=== PATIENT | female | born 1965 | race Caucasian/White ===

== ENCOUNTER 2025-10-21 09:54 | Outpatient (OUT) | payer OTHER, SELFPAY ==
--- OUTSIDE RECORDS SUMMARY | 2025-10-21 10:00 | XMS_ITS | Clinical Summary ---
Author Organization [employer] [facility] tem Address [id number] [address] [place] [address] Care Team Providers Care Battery Container Tester Aluminum Name Role Phone Mara Marcela Beard PA-C Primary Care Provider [phone] Allergies Active AllergyReactionsCriticalityNoted DateComments Sulfamethoxazole-PeevkqyiekepGjoresqfmdawsc17/03/2020 Medications MedicationSigDispense QuantityRefillsLast FilledStart DateEnd DateStatus levothyroxine (SYNTHROID, LEVOTHROID) 100 MCG tablet Take 1 tablet by mouth daily.12/22/2019Active omeprazole (PriLOSEC) 20 mg capsule Take 20 mg by mouth daily.Active fluticasone propionate (FLONASE) 50 mcg/actuation nasal spray Administer 2 sprays into each nostril daily.Active Family History Medical HistoryRelationNameCommentsHeart attackBrotherage 58HypertensionFather AnginaMotherDiabetesMotherlate onsetHeart diseaseMotherHyperlipidemiaMother HypertensionMotherKidney diseaseMotherrenal failureScoliosisSister 1No Known ProblemsSister 2oldestRelationNameStatusCommentsBrotherage 58DeceasedFatherAlive MotherDeceasedSister 1AliveSister 2oldestAlive Social History Tobacco UseTypesPacks/DayYears UsedDateSmoking Tobacco: Every DayCigarettes0.3 31.8Started: 1994Smokeless Tobacco: NeverAlcohol UseStandard Drinks/Week CommentsNot Currently0 (1 standard drink = 0.6 oz pure alcohol)rarelyAUDIT-C AnswerDate RecordedFrequency of Alcohol EksufqwmyecWfryi62/03/2020Average Number of DrinksNot on file01/05/2020Frequency of Binge DrinkingNot on file01/05/2020 ChildcareAnswerDate WtdbxiqqSmphyrurcLymdsyq03/12/2019EmploymentAnswerDate JzmxasaxSznnnrzbhwFvwobzf79/12/2019Purpose - LifeAnswerDate RecordedPurpose and direction in qoquQxlroxu14/11/2021CommentsNoSex and Gender Information ValueDate RecordedSex Assigned at BirthNot on fileLegal PssQsnlqg69/06/2015 11:55 AM EDTGender IdentityNot on fileSexual OrientationNot on file Last Filed Vital Signs Vital SignReadingTime TakenCommentsBlood Edmduyod397/6603 2:30 PM EDT Tprof595601/12/2020 2:30 PM IIKUjabcniuxua32.4 ??C (97.5 ??F)01/12/2020 2:30 PM EDTRespiratory Xwlj996101/12/2020 2:30 PM EDTOxygen Airviqhxaw84%01/12/2020 2:30 PM EDTInhaled Oxygen Concentration--Uazadk14.6 kg (173 lb 4.5 oz)01/12/2020 10:00 AM KQOIzipif832 cm (5' 3.39 )01/12/2020 10:00 AM EDTBody Mass Index30.32 01/12/2020 10:00 AM EDT Plan of Treatment Health MaintenanceDue DateLast DoneCommentsDepression Postrigbf65/03/1978Tobacco Tioqaxtpg24/03/1978Adult BMI Fcpdgfbhm14/03/1984DTaP,Tdap and Td Vaccines (1 - Tdap)1985Pap Smear1987Zoster (Shingles) Vaccine (1 of 2)01/05/2016 Influenza Hkqeegq06 Medical Devices ImplantedTypeAreaManufacturerDevice IdentifierShelf Expiration DateModel / Serial / LotTube Arian [employer] Pc 1.14 Id Rpl [id number] - [id number] - [id number] Implanted:Qty: 1 on 01/12/2020 [facility] ImplantLeft: EarGRACE [id number] / [id number] / [id number] T-Tube Pc Adry 1.27 Id [facility] [id number] - [id number] - [id number] Implanted:Qty: 1 on 01/12/2020 by [facility] ImplantRight: EarGRACE [id number] / [id number] / [id number] Insurance Care Teams Team MemberRelationshipSpecialtyStart DateEnd Date Marcela Terry PA-C [address] [place] [address] PCP - GeneralPhysician Assistant01/05/20
--- OUTSIDE RECORDS SUMMARY | 2025-10-21 10:00 | XMS_ITS | Clinical Summary ---
Author Organization [facility] Address [address] [place] [address] Care Team Providers Care Canvass Manager Name Role Phone Wendy Crump MD Primary Care Provider [phone] Allergies Active AllergyReactionsCriticalityNoted DateCommentsAzithromycinAnxietyLow 06/20/20239429Kwwjelhzkwww04/17/2023 Other Reaction(s): hallucination MdxwsuntemOhqvxdqHxb12/17/2023Sulfamethoxazole-Qwtdqzofehgk00/17/2023 Other Reaction(s): spacey Medications MedicationSigDispense QuantityRefillsLast FilledStart DateEnd DateStatus levothyroxine (Synthroid, Levoxyl) 50 MCG tablet Indications:Subclinical hypothyroidismTAKE ONE TABLET BY MOUTH DAILY IN THE MORNING ON AN EMPTY STOMACH 90 tablet 5Active nystatin (Mycostatin) 704468 UNIT/GM powder Indications:Candidal intertrigoApply topically in the morning and before bedtime. Under breast. 60 g 5Active buPROPion XL (Wellbutrin XL) 150 MG 24 hr tablet Indications:Personal history of nicotine dependenceTake 1 tablet (150 mg) by mouth Daily Do not crush, chew, or split. 90 tablet 501/6Active citalopram (CeleXA) 20 MG tablet Indications:Mixed anxiety and depressive disorderTake 1 tablet (20 mg) by mouth Daily 90 tablet 5Active atorvastatin (Lipitor) 20 MG tablet Indications:Mixed hyperlipidemiaTake 1 tablet (20 mg) by mouth Daily 90 tablet 5Active omeprazole OTC (PriLOSEC OTC) 20 MG EC tablet Indications:Gastroesophageal reflux disease without esophagitisTake 1 tablet (20 mg) by mouth in the morning. Take before meals. 90 tablet tive amoxicillin-clavulanate (Augmentin) 875-125 MG tablet Indications:Acute right otitis mediaTake 1 tablet (875 mg) by mouth in the morning and 1 tablet (875 mg) before bedtime. Do all this for 7 days. 14 tablet Expired Active Problems ProblemNoted DateDiagnosed DateSeasonal allergic sddumhtu96/23/2023 Gastroesophageal reflux hyahkrr3703/26/2023 Assessment & Plan (08/10/2025 2:12 PM EDT): -stable with omeprazole Mixed anxiety and depressive wwkjbhza62/23/2023 Assessment & Plan (08/10/2025 2:12 PM EDT): -Mood is stable on current medications. Reviewed importance of healthy diet and exercise, stress management, and social support. Mixed insigcaqandyhn27/23/2023 Assessment & Plan (08/10/2025 2:12 PM EDT): Orders: Lipid panel; Future atorvastatin (Lipitor) 20 MG tablet; Take 1 tablet (20 mg) by mouth Daily -on statin Primary lyexdzsz43/23/2023Subclinical goprjxcmjstasw84/23/2023 Resolved Problems ProblemNoted DateDiagnosed DateResolved DateAbnormality of red blood cells / Encounters DateTypeDepartmentCare LhcbDiuegluvfcw67/01/2025 2:30 PM ESTOffice Visit [facility] [address] [place] [address] Helga Cunningham NP Acute right otitis media (Primary Dx)10/04/2025amboo flowsheet [facility] [address] [place] [address] Helga Cunningham NP 10/04/20259589Rzykli27/22/2025Telephone [facility] [address] [place] [address] Wendy Crump MD 08/11/2025Results Follow-Up [place] [address] [place] [address] Rosemarie Garcia NP Lipid panel, Comprehensive metabolic panel, TSH W/REFLEX TO FT4, Additional followed-up results: 12:30 PM EDTOffice Visit [place] [address] [facility] [place] [address] Rosemarie Garcia NP Encounter for wellness examination (Primary Dx); Mixed hyperlipidemia; Gastroesophageal reflux disease without esophagitis; Mixed anxiety and depressive disorder; Acquired hypothyroidism; Fatigue, unspecified type; Screening mammogram for breast cancer; Colon cancer screening declined; Personal history of nicotine dependence; Herpes zoster without complication; Candidal intertrigo; Skin tag08/10/2025bstract [place] [address] [place] [address] Wendy Crump MD 08/10/2025amboo flowsheet [place] [address] [facility] [place] [address] Rosemarie Garcia NP 08/10/20255685Klrmzt01/26/2025 4:30 PM EDTOffice Visit [place] [address] [place] [address] Rosemarie Garcia NP Candidal intertrigo (Primary Dx); Hkzixhvssg48/26/2025ambkulwinder flowsheet [place] [address] [place] [address] Rosemarie Garcia NP 07/30/2025Travelfrom Last 3 Months Immunizations ImmunizationAdministration DatesNext DueInfluenza, injectable, quadrivalent, preservative free08/04/2019Zoster, Jitrfkezign65/03/2023,10/11/2022 Family History Medical HistoryRelationNameCommentsHeart attackBrotherSuicide AttemptsBrother HypertensionFatherAnginaMotherHypertensionMotherKidney failureMotherDepression NieceMental illnessPaternal GrandfatherSuicide AttemptsPaternal Grandfather Suicide AttemptsSisterMedical isuesSonRelationNameStatusCommentsBrotherDeceased Irngeganc8HcjjsiIhmttwwrImnnqgZvfvingaQesczRxemswkq YsmvxjgnayqQivvzcv0Gdk Social History Tobacco UseTypesPacks/DayYears UsedDateSmoking Tobacco: Every DayCigarettesLast attempted to quit: 09/29/2023Smokeless Tobacco: Never Tobacco Cessation:Ready to Q uit: Not Asked; Counseling Given: Not Answered Comments:5 or less cigs/day Alcohol UseStandard Drinks/WeekCommentsNever0 (1 standard drink = 0.6 oz pure alcohol)Caffine: 0AUDIT-CAnswerDate RecordedQ1: How often do you have a drink containing alcohol?Monthly or less06/21/2023Q2: How many drinks containing alcohol do you have on a typical day when you are drinking?1 or Q3: How often do you have six or more drinks on one occasion?Never06/21/2023HQ-2 AnswerDate RecordedPatient Health Questionnaire-2 Kgvok101 CommentsUnknownSex and Gender InformationValueDate RecordedSex Assigned at Not on fileLegal PnrDfyfha93/15/2023 7:12 PM EDTGender IdentityNot on fileSexual OrientationNot on file Last Filed Vital Signs Vital SignReadingTime TakenCommentsBlood Zzswuitg669/80112/05/2024 2:26 PM EST Dteaa08080/01/2025 2:26 PM CTUAqhrylipxce34.4 ??C (97.5 ??F)10/04/2025 2:26 PM ESTRespiratory Rate--Oxygen Skqcizehej27%10/04/2025 2:26 PM ESTInhaled Oxygen Concentration--Zrbojh08.7 kg (189 lb)10/04/2025 2:26 PM CQHJfegdv091 cm (5' 3 ) 09/10/2024 10:05 AM ESTBody Mass Index33.4809/10/2024 10:05 AM EST Plan of Treatment Health MaintenanceDue DateLast DoneCommentsCT Vmlaqifubkvf1966Colonoscopy 1966Colorectal Cancer Arsujzxfe1966FIT-DNA1966FIT1966 FOBT1966Mkgfjprccqgfd1966Pneumococcal Vaccine: Pediatrics (0 to 5 Years) and At-Risk Patients (6 to 64 Years) (1 of 2 - PCV)1985Pap Smear 1987Cervical Cancer Yphwfqlsk98/03/1996HPV/Trjudo2901/05/1996Mammogram 2006COVID-19 Vaccine ( season)/01/2021, 02/13/2021 Influenza OjhohsxBfqrbskuv83/15/2025, 09/28/2024, 08/04/2019 Procedures Procedure NamePriorityDate/TimeAssociated DiagnosisCommentsVITAMIN O27Drakwve 08/10/2025 1:08 PM EDT Fatigue, unspecified type VITAMIN D 25 HYDROXY FXMXQKbmdvja76/07/2025 1:08 PM EDT Fatigue, unspecified type IRON + TRANSFERRIN + QPCQIefoaox69/07/2025 1:08 PM EDT Fatigue, unspecified type CBC (INCLUDES DIFF/PLT)Pdvbmuc3708/10/2025 1:08 PM EDT Fatigue, unspecified type TSH W/REFLEX TO BQ6Krcgoze88/07/2025 1:08 PM EDT Acquired hypothyroidism COMPREHENSIVE METABOLIC SZSWCHbtodni96/07/2025 1:08 PM EDT Encounter for wellness examination LIPID KZZOINhjaxvy59/07/2025 1:08 PM EDT Encounter for wellness examination Mixed hyperlipidemia from Last 3 Months Results * Iron + transferrin + TIBC (08/10/2025 1:08 PM EDT)ComponentValueRef RangeTest MethodAnalysis TimePerformed AtPathologist SignatureIRON, LVBVW3513 - 160 mcg/dLQUESTIRON BINDING GLUCTTWL286606 - 450 mcg/dL (calc)QUEST% FRSIRQZWNU12 16 - 45 % (calc)PQSZHWGUUDQRO9538 - 232 ng/mLQUESTSpecimen (Source)Anatomical Location / LateralityCollection Method / VolumeCollection TimeReceived Time BloodVenous blood specimen / Yyeojds7708/10/2025 1:08 PM EDT1 1:09 PM EDT Narrative Resulting Agency Comment Performing Organization Information ?Site ID: QPT ?Name: [facility] ?Address: [address] [place] [address], [address] [place] [address] ?Director: Cheng Harvey MD Authorizing ProviderResult TypeResult StatusSaraFabiola Hospitalrojelioriddle hospital NPLAB BLOOD ORDERABLES Final ResultPerforming OrganizationAddressty/State/[facility] CodePhone Number QUEST * TSH W/REFLEX TO FT4 (08/10/2025 1:08 PM EDT)ComponentValueRef RangeTest Method Analysis TimePerformed AtPathologist SignatureTSH W/REFLEX TO FT42.740.40 - 4.50 mIU/LQUESTSpecimen (Source)Anatomical Location / LateralityCollection Method / VolumeCollection TimeReceived Time08/10/2025 1:08 PM EDT1 1:09 PM EDT Narrative Resulting Agency Comment Performing Organization Information ?Site ID: QPT ?Name: [facility] ?Address: [address] [place] [address], [address] [place] [address] ?Director: Cheng Harvey MD Authorizing ProviderResult TypeResult StatusSarah Kampfer NPLAB BLOOD ORDERABLES Final ResultPerforming OrganizationAddressty/State/ZIP CodePhone Number QUEST * Vitamin D 25 hydroxy (08/10/2025 1:08 PM EDT)ComponentValueRef RangeTest MethodAnalysis TimePerformed AtPathologist SignatureVITAMIN D,25-OH,TOTAL,IA31 30 - 100 ng/mLQUESTComment: Vitamin D Status ? 25-OH Vitamin D: Deficiency: <20 ng/mL Insufficiency: ? 20 - 29 ng/mL Optimal: > or = 30 ng/mL For 25-OH Vitamin D testing on patients on D2-supplementation and patients for whom quantitation of D2 and D3 fractions is required, the QuestAssureD(TM) 25-OH VIT D, (D2,D3), LC/MS/MS is recommended: order code 71093 (patients >2yrs). See Note 1 Note 1 For additional information, please refer to http://education.Paper Hunter/faq/IEG780 (This link is being provided for informational/ educational purposes only.) Specimen (Source)Anatomical Location / LateralityCollection Method / Volume Collection TimeReceived TimeBloodVenous blood specimen / Ztohpzt5208/10/2025 1:08 PM EDT1 1:09 PM EDT Narrative Resulting Agency Comment Performing Organization Information ?Site ID: QPT ?Name: [facility] ?Address: [address] [place] [address], [address] [place] [phone] ?Director: Cheng Harvey MD Authorizing ProviderResult TypeResult StatusSaroseann Garcia [facility] BLOOD ORDERABLES Final ResultPerforming OrganizationAddressCity/State/ZIP CodePhone Number [facility]ST * (ABNORMAL) CBC and differential (08/10/2025 1:08 PM EDT)ComponentValueRef RangeTest MethodAnalysis TimePerformed AtPathologist SignatureWHITE BLOOD CELL COUNT6.23.8 - 10.8 Thousand/uLQUESTRED BLOOD CELL COUNT5.24(H)3.80 - 5.10 Million/wMRZSKERBBCBMUCGV45.511.7 - 15.5 g/fASFGWPKFASTDTFBP30.8(H)35.0 - 45.0 %NKSOZFQM94.380.0 - 100.0 jZXEWOHHVU75.627.0 - 33.0 gjDGAWBMYXJ06.132.0 - 36.0 g/dLQUESTComment: For adults, a slight decrease in the calculated MCHC value (in the range of 30 to 32 g/dL) is most likely not clinically significant; however, it should be interpreted with caution in correlation with other red cell parameters and the patient's clinical condition. RDW13.611.0 - 15.0 %QUESTPLATELET HUDYJ018976 - 400 Thousand/uLQUESTMPV9.77.5 - 12.5 fLQUESTABSOLUTE NEUTROPHILS3,3911,500 - 7,800 cells/uLQUESTABSOLUTE LYMPHOCYTES1,707203 - 3,900 cells/uLQUESTABSOLUTE PPTBBKDBH922797 - 950 cells/uL QUESTABSOLUTE ECDPSROTZEJ74442 - 500 cells/uLQUESTABSOLUTE MQZRNNOHP931 - 200 cells/kWPRXCNQTMDTIARHQG29.7%NWCTWDYMPIPPKXRN66.4%SYJMDSXZEZDOAN66.2%QUEST EOSINOPHILS2.1%QUESTBASOPHILS0.6%QUESTSpecimen (Source)Anatomical Location / LateralityCollection Method / VolumeCollection TimeReceived TimeBloodVenous blood specimen / Mcrzufh7808/10/2025 1:08 PM EDT1 1:09 PM EDT Narrative Resulting Agency Comment Performing Organization Information ?Site ID: QPT ?Name: [facility] ?Address: [address] [place] [address] ?Director: Cheng Harvey MD Authorizing ProviderResult TypeResult StatusSara Jose NPLAB BLOOD ORDERABLES Final ResultPerforming [facility] HealthcareAddNew [facility] HospitalPhone Number QUEST * Vitamin B12 (08/10/2025 1:08 PM EDT)ComponentValueRef RangeTest MethodAnalysis TimePerformed AtPathologist SignatureVITAMIN [id number] - 1,100 pg/mLQUEST Specimen (Source)Anatomical Location / LateralityCollection Method / Volume Collection TimeReceived TimeBloodVenous blood specimen / Upbrgsx7108/10/2025 1:08 PM EDT1 1:09 PM EDT Narrative Resulting Agency Comment Performing Organization Information ?Site ID: QPT ?Name: [facility] ?Address: [address] [place] [address] ?Director: Cheng Harvey MD Authorizing ProviderResult TypeResult StatusSarah Kampfer NPLAB BLOOD ORDERABLES Final ResultPerforming OrganizationAddressCity/State/ZIP CodePhone Number [facility]ST * (ABNORMAL) Lipid panel (08/10/2025 1:08 PM EDT)ComponentValueRef RangeTest MethodAnalysis TimePerformed AtPathologist SignatureCHOLESTEROL, PXCPT679<200 mg/dLQUESTHDL OGKTSJQYLRH98> OR = 50 mg/dDEQAVAWKHGUECSIPMWW307(H)<150 mg/dL QUESTComment: If a non-fasting specimen was collected, consider repeat triglyceride testing on a fasting specimen if clinically indicated. Airam et al. J. of Clin. Lipidol. 2015;9:129-169. LDL PVDZBQKQRZH33jd/dL (calc)QUESTComment: Reference range: <100 Desirable range <100 mg/dL for primary prevention; <70 mg/dL for patients with CHD or diabetic patients with > or = 2 CHD risk factors. LDL-C is now calculated using the Randall calculation, which is a validated novel method providing better accuracy than the Friedewald equation in the estimation of LDL-C. Jayesh SS et al. SUNITHA. 2013;310(19): 8556-9373 (http://education.Clout.Discera/faq/XHT642) CHOL/HDLC RATIO3.4<5.0 (calc)QUESTNON HDL LJQQBQNVVUA436<130 mg/dL (calc)QUEST Comment: For patients with diabetes plus 1 major ASCVD risk factor, treating to a non-HDL-C goal of <100 mg/dL (LDL-C of <70 mg/dL) is considered a therapeutic option. Specimen (Source)Anatomical Location / LateralityCollection Method / Volume Collection TimeReceived TimeBloodVenous blood specimen / Vdcbwqm6008/10/2025 1:08 PM EDT1 1:09 PM EDT Narrative Resulting Agency Comment Performing Organization Information ?Site ID: QPT ?Name: [facility] ?Address: [address] [place] [address], [address] [place] [phone] ?Director: Cheng Harvey MD Authorizing ProviderResult TypeResult StatusSaroseann BECK BLOOD ORDERABLES Final ResultPerforming OrganizationAddressCity/State/ZIP CodePhone Number QUEST * Comprehensive metabolic panel (08/10/2025 1:08 PM EDT)ComponentValueRef Range Test MethodAnalysis TimePerformed AtPathologist SahzbxwrfRawgtaf8976 - 99 mg/dLQUESTComment: ? Fasting reference interval ODN125 - 25 mg/dLQUESTCreatinine0.970.50 - 1.03 mg/wHPMHIBMKCY62> OR = 60 mL/min/1.37h8LDREHPOE/CREATININE RATIOSEE NOTE: (calc)QUESTComment: ?? Not Reported: BUN and Creatinine are within ?? reference range. ? Ammowg838259 - 146 mmol/LQUESTPotassium, Bld3.93.5 - 5.3 mmol/IUDVLJUmqneekx811 98 - 110 mmol/LQUESTCarbon Nvalzit1089 - 32 mmol/LQUESTCalcium9.48.6 - 10.4 mg/dLQUESTPROTEIN, TOTAL6.96.1 - 8.1 g/dLQUESTALBUMIN4.33.6 - 5.1 g/dLQUEST GLOBULIN2.61.9 - 3.7 g/dL (calc)QUESTALBUMIN/GLOBULIN RATIO1.71.0 - 2.5 (calc) QUESTBILIRUBIN, TOTAL0.40.2 - 1.2 mg/dLQUESTALKALINE WKRRKZPCSTB3504 - 153 U/L AEKWHJPP4480 - 35 U/CKTPLRLHA024 - 29 U/LQUESTSpecimen (Source)Anatomical Location / LateralityCollection Method / VolumeCollection TimeReceived TimeBlood Venous blood specimen / Seadxxl0608/10/2025 1:08 PM EDT1 1:09 PM EDT Narrative Resulting Agency Comment Performing Organization Information ?Site ID: QPT ?Name: [facility] ?Address: [address] [place] [address], [address] [place] [phone] ?Director: Cheng Harvey MD Authorizing ProviderResult TypeResult StatusSaroseann BECK BLOOD ORDERABLES Final ResultPerforming OrganizationAddressCity/State/ZIP CodePhone Number QUEST from Last 3 Months Insurance * Guarantor: Aparna Michelle TypeRelation to PatientDate of PhoneBilling AddressPersonal/OkbxquZfid1965 [phone] [address] Care Teams Team MemberRelationshipSpecialtyStart DateEnd Date Wendy Crump MD [address] [place] [address] PCP - GeneralFatxly Medicine03/12/23
--- NOTE | 2025-10-21 10:05 | US_ITS ---
The [address] [address] Patient Name: BRIANDA TRUJILLO MRN: [id number] date: 1965 Sex: F Assigned Patient Location: [place] Current Patient Location: [place] Accession/Order Number: [id number] Exam Date: 10/21/2025 10:06 Report Date: 10/21/2025 10:43 At the request of: NON-STAFF PHYSICIAN MD Procedure: US thyroid THYROID ULTRASOUND CLINICAL DATA: Thyromegaly COMPARISON: None The thyroid lobes are within normal limits for size. The right measures 3.4 x 1.3 x 1.3 cm. The left lobe measures 2.2 x 1.2 x 1.1 cm. The isthmus measures 3 mm. There is heterogeneous echogenicity and slight hyperemia, greater on the right. No thyroid nodularity is seen on the left. On the right at the superior pole, there is a hypoechoic nodule with hypoechoic septations and lobulated margin (TI-RADS 4). US/US thyroid IMPRESSION: TI-RADS 4 RIGHT THYROID NODULE . ULTRASOUND-GUIDED BIOPSY COULD BE CONSIDERED. Impression dictated by: Renea Jensen M.D. 10/21/2025 10:43 AM Dictation Location: [employer] Electronically authenticated by: [id number] Date: 10/21/2025 10:43
== END 2025-10-21 09:55 | disposition home or self-care (01) ==
LOC: US 09:58
DX: E01.0 Iodine-deficiency related diffuse (endemic) goiter (principal)
CPT/HCPCS: 76536